=== PATIENT | male | born 1955 | race Caucasian/White ===

== ENCOUNTER 2016-11-23 14:29 | Inpatient (IN) | payer BC ==
[~2016-11-23] VITALS: Ht 185.4 cm; Wt 93.3 kg
[2016-11-23 07:55] VITALS: BP 131/69
[~2016-11-23 14:29] MED LIST: ACET500C OR; ACET65TA OR; ADV100INH INH; ADVAIR INH; APRI0.37 PO; COLA100C2 OR; GAS-80CH OR; IBUP600T OR; LACT10SO8 OR; MAALSUS OR; METHYLPREDNISOLONE; MILKSUS OR; MIRA3350 PO; MIRALEX PO; OMEP20TA PO; OMEP20TA7 OR; OXYC1TAB23 PO; PRED10TA PO; PROA1AER INH; TYLE500T78 PO; ZOMI2.5T4 PO; ZOMI5TAB OR; [UNRECOGNIZED DRUG - OTHER]; [UNRECOGNIZED DRUG - OTHER] OR
[2016-11-23] MEDS ORDERED: OMEP40CA2 PO (14:47)
[2016-11-23] MEDS ORDERED: APRI0.37 PO (14:47)
[2016-11-23] MEDS ORDERED: ONDANSETRON 4MG/2ML VIAL (J2405) As Ordered ONE (16:08)
[2016-11-23] MEDS ORDERED: ONDANSETRON 4MG/2ML VIAL (J2405) IV ONE (16:15)
--- NOTE | 2016-11-23 16:25 | REP ---
Clinical: Abdominal pain. Technique: Upright view of the chest with supine and upright views of the abdomen and pelvis. Findings: Upright view of the chest demonstrates no free air below diaphragm to suspect pneumoperitoneum. Few scattered air fluid levels are identified along with dilated loops of small bowel measuring up to 4.7 cm diameter consistent with bowel obstruction. Evidence for prior cholecystectomy and bowel surgery with surgical sutures material in the right upper abdomen. No organomegaly. Skeletal structures intact. No abnormal calcifications. Impression: Findings compatible with small bowel obstruction. Signed by Jimmie Rubio MD 11/23/2016 04:17 P
[2016-11-23] MEDS ORDERED: MORPHINE 4 MG/ML 1ML SYRINGE IV ONE ×2 (16:30→17:15)
[2016-11-23] MEDS ORDERED: SODIUM CHLORIDE 0.9% 1000 ML IV ONE (16:30)
[2016-11-23 16:35] LABS: BASO % 0.4 % (0.0-1.0); EOS # 0.1 K/mm3 (0.0-0.50); EOS % 0.8 % (0.0-3.0); LARGE UNSTAINED CELL # 0.1 K/mm3 (0.0-0.4); LARGE UNSTAINED CELL % 0.6 % (0.0-4.0); LYMPH # 1.4 K/mm3 (1.5-4.5); LYMPH % 9.7 % (24.0-44.0); MEAN CORPUSCULAR HEMOGLOBIN 30.2 pg (27.0-33.0); MEAN CORPUSCULAR HGB CONC 33.3 g/dl (32.0-36.5); MEAN CORPUSCULAR VOLUME 90.8 fl (80.0-96.0); MONO # 0.6 K/mm3 (0.0-0.8); MONO % 4.4 % (0.0-5.0); NEUTROPHILS # 11.2 K/mm3 (1.8-7.7); NEUTROPHILS % 84.2 % (36.0-66.0); PLATELET COUNT, AUTOMATED 189 k/mm3 (150-450); RED CELL DISTRIBUTION WIDTH 13.3 % (11.5-14.5); WHITE BLOOD COUNT 13.4 K/mm3 (4.0-10.0)
[2016-11-23] MEDS ORDERED: HYDR-3713 PO (16:48)
[2016-11-23] MEDS ORDERED: OMEP20CA3 PO (16:48)
[2016-11-23] MEDS ORDERED: SUCR1TAB56 PO (16:48)
[2016-11-23 16:57] LABS: ALBUMIN 3.9 GM/DL (3.2-5.2); ALBUMIN/GLOBULIN RATIO 0.91 (1.00-1.93); ALKALINE PHOSPHATASE 117 U/L (45-117); ALT/SGPT 45 U/L (12-78); ANION GAP 11 MEQ/L (8-16); AST/SGOT 27 U/L (15-37); BILIRUBIN,DIRECT 0.2 MG/DL (0.0-0.2); BILIRUBIN,TOTAL 0.8 MG/DL (0.2-1.0); BLOOD UREA NITROGEN 14 MG/DL (7-18); CALCIUM LEVEL 9.3 MG/DL (8.5-10.1); CARBON DIOXIDE LEVEL 26 MEQ/L (21-32); CHLORIDE LEVEL 102 MEQ/L (98-107); CREATININE FOR GFR 1.05 MG/DL (0.70-1.30); GLOMERULAR FILTRATION RATE > 60.0 (>56); GLUCOSE, FASTING 124 MG/DL (70-105); POTASSIUM SERUM 4.3 MEQ/L (3.5-5.1); SODIUM LEVEL 139 MEQ/L (136-145); TOTAL PROTEIN 8.2 GM/DL (6.4-8.2)
[2016-11-23] MEDS ORDERED: ISOVUE-370 76% 100ML VIAL (Q9967) As Ordered ONE (17:04)
--- NOTE | 2016-11-23 17:46 | REP ---
Clinical: Epigastric pain with suspicion for small bowel obstruction. Technique: Axial contrast enhanced images from the lung bases to the pubic symphysis using 100 ml Isovue 370 intravenous contrast material with coronal and sagittal re-formations. Findings: Distended and fluid-filled mid to distal small bowel is appreciated to the anastomosis with the ascending colon in the right mid abdomen and extension of fluid mildly filling the ascending and transverse colon to the level of the splenic flexure. Findings may reflect early small bowel obstruction as well as enterocolitis and close clinical observation is recommended. No free air. No free fluid. Liver, spleen, pancreas, bilateral adrenal glands and kidneys are normal. The patient is status post cholecystectomy. Incidental subcentimeter hepatic cyst noted in the right lobe. Pelvis demonstrates normal bladder and age appropriate osseous/seminal vesicles. Vasculature is normal. Musculoskeletal structures the straight age-related changes. Lung bases are clear. Impression: Distended fluid-filled mid to distal small bowel to the level of the anastomosis with colon in the right mid abdomen and fluid filled mildly prominent ascending and transverse colon. Differential diagnosis includes early small bowel obstruction as well as enterocolitis and close clinical observation is recommended. Signed by Jimmie Rubio MD 11/23/2016 05:37 P
[2016-11-23] MEDS ORDERED: MORPHINE 2 MG/ML 1ML SYRINGE IV PRN (18:00)
[2016-11-23] MEDS ORDERED: PERCOCET 5MG/325MG TAB PO PRN (18:00)
[2016-11-23] MEDS ORDERED: PROMETHAZINE INJ 25 MG/ML VIAL (J2550) IV PRN (18:00)
[2016-11-23] MEDS: LR 1,000 ML IV SCH (20:17)
[2016-11-23] MEDS: CIPROFLOXACIN 400 MG in APPROPRIATE DILUENT 1 EA IV SCH (20:17)
[2016-11-23] MEDS: SUCRALFATE 1 GM TAB PO SCH (20:17)
[2016-11-23] MEDS: MORPHINE 4 MG/ML 1ML SYRINGE IV PRN (20:18)
[2016-11-23] MEDS: PANTOPRAZOLE 40MG INJ (PROTONIX) (C9113) IV SCH (20:18)
[2016-11-23] MEDS: MESALAMINE 250 MG CR CAP PO SCH (20:18)
[2016-11-23] MEDS: METOCLOPRAMIDE INJ 10MG/2ML VIAL (J2765) IV PRN (20:18)
[2016-11-23] MEDS: ADVAIR DISKUS 100/50 INH PWD INH SCH (23:09)
[2016-11-24 02:00] VITALS: BP 116/61
[2016-11-24] MEDS: LR 1,000 ML IV SCH ×4 (05:33→22:03)
[2016-11-24] MEDS: ONDANSETRON 4MG/2ML VIAL (J2405) IV PRN (05:33)
[2016-11-24] MEDS: MORPHINE 4 MG/ML 1ML SYRINGE IV PRN ×3 (05:38→18:13)
[2016-11-24 06:00] VITALS: BP 131/69
[2016-11-24 06:16] LABS: MEAN CORPUSCULAR HEMOGLOBIN 30.7 pg (27.0-33.0); MEAN CORPUSCULAR HGB CONC 33.9 g/dl (32.0-36.5); MEAN CORPUSCULAR VOLUME 90.3 fl (80.0-96.0); RED CELL DISTRIBUTION WIDTH 13.2 % (11.5-14.5); WHITE BLOOD COUNT 6.5 K/mm3 (4.0-10.0)
[2016-11-24 06:28] LABS: ANION GAP 7 MEQ/L (8-16); BLOOD UREA NITROGEN 16 MG/DL (7-18); CALCIUM LEVEL 7.8 MG/DL (8.5-10.1); CARBON DIOXIDE LEVEL 29 MEQ/L (21-32); CHLORIDE LEVEL 103 MEQ/L (98-107); CREATININE FOR GFR 1.01 MG/DL (0.70-1.30); GLOMERULAR FILTRATION RATE > 60.0 (>56); GLUCOSE, FASTING 127 MG/DL (70-105); POTASSIUM SERUM 3.8 MEQ/L (3.5-5.1); SODIUM LEVEL 139 MEQ/L (136-145)
[2016-11-24] MEDS: ADVAIR DISKUS 100/50 INH PWD INH SCH ×2 (07:45→19:58)
[2016-11-24] MEDS: CIPROFLOXACIN 400 MG in APPROPRIATE DILUENT 1 EA IV SCH ×2 (09:01→20:03)
[2016-11-24] MEDS: MESALAMINE 250 MG CR CAP PO SCH ×3 (09:01→20:12)
[2016-11-24] MEDS: PANTOPRAZOLE 40MG INJ (PROTONIX) (C9113) IV SCH ×2 (09:01→20:12)
[2016-11-24] MEDS: SUCRALFATE 1 GM TAB PO SCH ×3 (09:01→20:12)
[2016-11-24] MEDS: METOCLOPRAMIDE INJ 10MG/2ML VIAL (J2765) IV PRN (09:05)
[2016-11-24] MEDS: BUDESONIDE EC 3 MG CAP (ENTOCORT EC) PO SCH (09:05)
[2016-11-24 10:00] VITALS: BP 112/63
[2016-11-24] MEDS ORDERED: CHLORASEPTIC SPRAY MT PRN (10:00)
[2016-11-24 14:00] VITALS: BP 125/69
--- NOTE | 2016-11-24 14:24 | ECGEPIP ---
Stationary ECG Study [facility] - ED Test Date: 2016-11-23 Pat Name: WENCESLAO HERNANDEZ Department: Room: - Gender: M Warehouse Shipping Clerk: ar : 1955 Requested By: Katja Morales Order Number: [id number] Reading MD: Katja Morales Measurements Intervals [place] Rate: 91 P: 60 CA: 156 QRS: -54 QRSD: 108 T: 37 QT: 340 QTc: 420 Interpretive Statements SINUS RHYTHM POSSIBLE LEFT ATRIAL ENLARGEMENT LEFT ANTERIOR FASCICULAR BLOCK POSSIBLE LEFT VENTRICULAR HYPERTROPHY NO PRIOR FOR COMPARISON Electronically Signed On 11-24-2016 14:23:55 EDT by Katja Morales
[2016-11-24 18:00] VITALS: BP 138/75
[2016-11-24] MEDS: ZOLMitriptan TABLET 2.5MG PO PRN (18:01)
[2016-11-24 22:00] VITALS: BP 124/72
[2016-11-25 02:00] VITALS: BP 126/67
[2016-11-25] MEDS: LR 1,000 ML IV SCH ×3 (05:23→21:03)
[2016-11-25] MEDS: ACETAMINOPHEN 500 MG TAB PO PRN (05:35)
[2016-11-25 06:00] VITALS: BP 111/66
[2016-11-25 06:57] LABS: MEAN CORPUSCULAR HEMOGLOBIN 30.2 pg (27.0-33.0); MEAN CORPUSCULAR HGB CONC 33.1 g/dl (32.0-36.5); MEAN CORPUSCULAR VOLUME 91.2 fl (80.0-96.0); RED CELL DISTRIBUTION WIDTH 13.2 % (11.5-14.5)
[2016-11-25 07:04] LABS: ANION GAP 6 MEQ/L (8-16); BLOOD UREA NITROGEN 13 MG/DL (7-18); CALCIUM LEVEL 8.3 MG/DL (8.5-10.1); CARBON DIOXIDE LEVEL 31 MEQ/L (21-32); CHLORIDE LEVEL 103 MEQ/L (98-107); CREATININE FOR GFR 1.01 MG/DL (0.70-1.30); GLOMERULAR FILTRATION RATE > 60.0 (>56); GLUCOSE, FASTING 95 MG/DL (70-105); POTASSIUM SERUM 3.9 MEQ/L (3.5-5.1); SODIUM LEVEL 140 MEQ/L (136-145)
[2016-11-25] MEDS: ADVAIR DISKUS 100/50 INH PWD INH SCH ×2 (07:44→19:59)
[2016-11-25] MEDS: CIPROFLOXACIN 400 MG in APPROPRIATE DILUENT 1 EA IV SCH (08:00)
--- NOTE | 2016-11-25 09:00 | REP ---
Clinical: Ileus . Technique: Upright view of the chest with supine and upright views of the abdomen and pelvis. Comparison: 11/23/2016. Findings: Frontal upright view of the chest demonstrates no acute cardiopulmonary process or free air below the diaphragm to suspect pneumoperitoneum. A nasogastric tube is identified coursing just below left hemidiaphragm. Supine and upright views of the abdomen and pelvis demonstrate nonspecific bowel gas pattern without definite obstruction or perforation. Bowel pattern appears improved compared to prior examination. No organomegaly. No abnormal calcifications. Skeletal structures normal for age. Impression: Improved bowel gas pattern with decreased dilated distended small bowel. Signed by Jimmie Rubio MD 11/25/2016 08:50 A
[2016-11-25] MEDS: MESALAMINE 250 MG CR CAP PO SCH ×3 (09:06→21:31)
[2016-11-25] MEDS: PANTOPRAZOLE 40MG INJ (PROTONIX) (C9113) IV SCH ×2 (09:06→21:31)
[2016-11-25] MEDS: BUDESONIDE EC 3 MG CAP (ENTOCORT EC) PO SCH (09:06)
[2016-11-25] MEDS: SUCRALFATE 1 GM TAB PO SCH ×3 (09:06→21:31)
[2016-11-25] MEDS: PERCOCET 5MG/325MG TAB PO PRN ×3 (09:07→22:41)
[2016-11-25 10:00] VITALS: BP 135/81
[2016-11-25] MEDS: DICYCLOMINE 10 MG CAP PO SCH ×3 (11:25→21:30)
[2016-11-25] MEDS: ONDANSETRON 4MG/2ML VIAL (J2405) IV PRN (11:25)
[2016-11-25 14:00] VITALS: BP 133/85
--- NOTE | 2016-11-25 14:00 | HPE ---
DATE OF ADMISSION: 11/23/2016 BRIEF HISTORY OF PRESENT ILLNESS: The patient is a 61-year-old male who has a history of Crohn's disease and has had multiple intra-abdominal surgeries and approximately a week and half ago underwent diagnostic laparoscopy with laparoscopic lysis of adhesions in [place]. Since that time, he has had poor gastrointestinal (GI) function and essentially had been moderately distended, having some crampy abdominal pain, but noticed that he developed progressive abdominal pain prior to admission approximately starting in 12-24 hours. He has some generalized crampy abdominal pain on the upper abdomen without fevers and without chills. He has not been on steroids for his Crohn's disease recently. He underwent a CAT scan here in the emergency room that reveals distended small bowel and fluid-filled ascending and transverse colon. All of this is consistent with an ileus versus a small bowel obstruction. Although that is not described on the CAT scan as an ileus, but that is the most likely etiology at this point. He has not had a bowel movement for 24 hours prior to admission. His white count is elevated at 13.4 without any other significant laboratory abnormalities. PAST MEDICAL HISTORY: 1. As stated previously, history of Crohn's disease. 2. History of small bowel obstruction/small bowel resection. 3. History of cholecystectomy. 4. Chronic obstructive pulmonary disease. MEDICATIONS (include): - hydrocodone - omeprazole - MiraLax - Apriso PHYSICAL EXAMINATION: Reveals a 61-year-old male who looks stated age. HEENT is unremarkable. Neck: Supple without adenopathy. Lungs: Clear to auscultation without crackles, wheezes or rhonchi. Heart is regular without murmur. Abdomen is softly distended. He has some mild tenderness throughout the upper abdomen and possible lower abdomen. Without significant guarding or rebound. He complains of colicky pain and at this point threw up a while ago, but really does not feel nauseated or having any emesis at this time. IMPRESSION AND PLAN: The patient has most likely an ileus associated with postoperative timing of this. I do feel that he needs to be nothing by mouth (n.p.o.). Another possibility of course is a Crohn's exacerbation or infectious etiology. Right now, we are not seeing an infectious etiology, but the CAT scan suggested a possible enteritis and that being another etiology for this. From my standpoint, will give him IV fluids and will see how he does overnight. Depending on how he is doing, if he has not had significant improvement of his abdominal distention, he may need an NG tube for decompression, antibiotics, IV fluids, etc. as well as, possibly even steroids may be considered in him. His stabilizing machine operator is in [place] as well as the surgeon and at this point it is reasonable to have him transferred back to that hospital should he need ongoing surgical intervention/care.
[2016-11-25] MEDS: ZOLMitriptan TABLET 2.5MG PO PRN (14:35)
[2016-11-25 18:00] VITALS: BP 131/67
[2016-11-25 22:00] VITALS: BP 121/66
[2016-11-26 02:00] VITALS: BP 123/66
[2016-11-26] MEDS: LR 1,000 ML IV SCH (05:06)
[2016-11-26 06:00] VITALS: BP 124/66
[2016-11-26 06:02] LABS: MEAN CORPUSCULAR HEMOGLOBIN 30.6 pg (27.0-33.0); MEAN CORPUSCULAR HGB CONC 33.6 g/dl (32.0-36.5); MEAN CORPUSCULAR VOLUME 91.1 fl (80.0-96.0); RED CELL DISTRIBUTION WIDTH 13.1 % (11.5-14.5); WHITE BLOOD COUNT 5.1 K/mm3 (4.0-10.0)
[2016-11-26 06:19] LABS: ANION GAP 5 MEQ/L (8-16); BLOOD UREA NITROGEN 11 MG/DL (7-18); CALCIUM LEVEL 8.2 MG/DL (8.5-10.1); CARBON DIOXIDE LEVEL 32 MEQ/L (21-32); CHLORIDE LEVEL 103 MEQ/L (98-107); CREATININE FOR GFR 1.01 MG/DL (0.70-1.30); GLOMERULAR FILTRATION RATE > 60.0 (>56); GLUCOSE, FASTING 83 MG/DL (70-105); POTASSIUM SERUM 3.7 MEQ/L (3.5-5.1); SODIUM LEVEL 140 MEQ/L (136-145)
[2016-11-26] MEDS: ADVAIR DISKUS 100/50 INH PWD INH SCH ×2 (07:56→19:57)
[2016-11-26] MEDS: SUCRALFATE 1 GM TAB PO SCH ×3 (08:55→20:26)
[2016-11-26] MEDS: DICYCLOMINE 10 MG CAP PO SCH ×3 (08:55→20:26)
[2016-11-26] MEDS: MESALAMINE 250 MG CR CAP PO SCH ×3 (08:55→20:26)
[2016-11-26] MEDS: BUDESONIDE EC 3 MG CAP (ENTOCORT EC) PO SCH (08:55)
[2016-11-26] MEDS: PANTOPRAZOLE 40MG INJ (PROTONIX) (C9113) IV SCH ×2 (08:55→20:26)
[2016-11-26] MEDS: ONDANSETRON 4MG/2ML VIAL (J2405) IV PRN (09:14)
[2016-11-26 10:00] VITALS: BP 129/68
[2016-11-26] MEDS: MORPHINE 4 MG/ML 1ML SYRINGE IV PRN (10:10)
[2016-11-26 14:00] VITALS: BP 136/71
[2016-11-26 17:28] VITALS: BP 145/93
[2016-11-26] MEDS: PERCOCET 5MG/325MG TAB PO PRN (20:27)
[2016-11-26 22:00] VITALS: BP 120/77
[2016-11-27 02:00] VITALS: BP 119/69
[2016-11-27] MEDS: ACETAMINOPHEN 500 MG TAB PO PRN (05:28)
[2016-11-27 05:59] LABS: MEAN CORPUSCULAR HEMOGLOBIN 29.6 pg (27.0-33.0); MEAN CORPUSCULAR HGB CONC 32.6 g/dl (32.0-36.5); MEAN CORPUSCULAR VOLUME 90.8 fl (80.0-96.0)
[2016-11-27 06:00] VITALS: BP 132/80
[2016-11-27 06:10] LABS: ANION GAP 8 MEQ/L (8-16); BLOOD UREA NITROGEN 10 MG/DL (7-18); CALCIUM LEVEL 8.2 MG/DL (8.5-10.1); CARBON DIOXIDE LEVEL 30 MEQ/L (21-32); CHLORIDE LEVEL 103 MEQ/L (98-107); CREATININE FOR GFR 0.99 MG/DL (0.70-1.30); GLOMERULAR FILTRATION RATE > 60.0 (>56); GLUCOSE, FASTING 92 MG/DL (70-105); POTASSIUM SERUM 3.3 MEQ/L (3.5-5.1); SODIUM LEVEL 141 MEQ/L (136-145)
[2016-11-27] MEDS: ADVAIR DISKUS 100/50 INH PWD INH SCH (08:04)
[2016-11-27] MEDS: DICYCLOMINE 10 MG CAP PO SCH (08:56)
[2016-11-27] MEDS: BUDESONIDE EC 3 MG CAP (ENTOCORT EC) PO SCH (08:57)
[2016-11-27] MEDS: SUCRALFATE 1 GM TAB PO SCH (08:57)
[2016-11-27] MEDS: MESALAMINE 250 MG CR CAP PO SCH (08:57)
[2016-11-27] MEDS ORDERED: PANTOPRAZOLE 40MG TAB (PROTONIX) PO SCH (09:00)
[2016-11-27 09:56] VITALS: BP 129/80
[2016-11-27] MEDS ORDERED: POTASSIUM CHLORIDE 10 MEQ SR TABLET PO ONE (10:00)
--- NOTE | 2016-12-12 22:00 | DSES ---
DATE OF ADMISSION: 11/23/2016 DATE OF DISCHARGE: 11/27/2016 PRINCIPAL DIAGNOSIS: Possible Crohn's exacerbation/postoperative ileus secondary to a diagnostic laparoscopy with lysis of adhesions in [place]. ASSOCIATED DIAGNOSES: 1. History of Crohn's disease. 2. History of small bowel obstruction. 3. History of small bowel resection. 4. History of cholecystectomy. 5. History of chronic obstructive pulmonary disease (COPD). HISTORY OF PRESENT ILLNESS: The patient is a 61-year-old male who has Crohn's disease and has had multiple intra-abdominal surgeries, and a week and half ago underwent a diagnostic laparoscopy with lysis of adhesions in [place]. Since that time, he has had poor gastrointestinal (GI) function and has had some moderate distension and crampy abdominal pain, but over the last 24-48 hours prior to admission developed severe pain, discomfort. The patient had a CT scan which revealed possible ileus with air-fluid levels. HOSPITAL COURSE SUMMARY: The patient was admitted with the above diagnosis, was kept nothing by mouth overnight but did not have any significant improvement of his abdominal distension and pain and thus, a nasogastric (NG) tube was placed. After 24 hours he has significant improvement and overall started bowel function the second hospital day, but still with the abdominal distension issue. His NG tube was left in place for 48 hours. He started having copious amounts of bowel movements and his NG tube was discontinued. He was started on a clear liquid diet. Eventually discharged home on 11/27. DISCHARGE MEDICATIONS: Include Tylenol, Vicodin, omeprazole, MiraLax, Advair, Carafate and Zomig. He is to follow up with his surgeon in [place] and the next week or two, and followup with his computer security specialist in the next month as well.
== END 2016-11-27 12:39 | disposition home or self-care (01) | DRG 247 ==
LOC: M ED 15:39 → OBSVTOIN 17:57 → M ED INP 17:57 → M MSPAV 19:52
PROVIDERS: ADMIT Surgery; ATTEND Surgery
DX: K56.7 Ileus, unspecified (principal); K50.90 Crohn's disease, unspecified, without complications; J44.9 Chronic obstructive pulmonary disease, unspecified; Z79.899 Other long term (current) drug therapy

== ENCOUNTER 2022-01-26 16:46 | Emergency (ER) | payer BC, MEDICARE ==
[~2022-01-26] VITALS: Ht 185.4 cm; Wt 108.2 kg
[~2022-01-26 16:46] MED LIST changes: +HYDR-3713 PO; +OMEP-358 PO; +OMEP1CAP73 PO; -OMEP20TA PO; +OMEP40CA4 PO; +PRED-351 PO; -PRED10TA PO; -PROA1AER INH; +PROAAER10 INH; +SUCR1TAB56 PO
[2022-01-26] MEDS ORDERED: PRED10TA2 (17:07)
[2022-01-26] MEDS ORDERED: OXYC1TAB23 PO (17:07)
[2022-01-26] MEDS ORDERED: HUMI40IN2 (17:07)
[2022-01-26] MEDS ORDERED: MORPHINE 4 MG/ML 1ML VIAL/SYRINGE IV ONE ×2 (19:15→20:35)
[2022-01-26 19:20] LABS: BASO % 0.5 % (0.0-1.0); EOS # 0.3 10^3/uL (0.0-0.5); EOS % 3.7 % (0.0-3.0); HEMATOCRIT 37.7 % (42.0-52.0); HEMOGLOBIN 12.3 g/dl (13.5-17.5); LYMPH # 1.3 10^3/uL (1.5-5.0); LYMPH % 17.7 % (24.0-44.0); MEAN CORPUSCULAR HGB CONC 32.6 g/dl (32.0-36.5); MONO # 0.9 10^3/uL (0.0-0.8); NEUTROPHILS % 65.6 % (36.0-66.0); PLATELET COUNT, AUTOMATED 312 10^3/uL (150-450); RED BLOOD COUNT 3.97 10^6/uL (4.30-6.10); WHITE BLOOD COUNT 7.6 10^3/uL (4.0-10.0)
[2022-01-26] MEDS ORDERED: KETOROLAC 30 MG/ML 1ML VIAL IV ONE (19:35)
[2022-01-26 19:45] LABS: ALBUMIN 2.5 GM/DL (3.2-5.2); ALT/SGPT 45 U/L (12-78); BILIRUBIN,DIRECT 0.2 MG/DL (0.0-0.2); BILIRUBIN,TOTAL 0.6 MG/DL (0.2-1.0); BLOOD UREA NITROGEN 8 MG/DL (7-18); CALCIUM LEVEL 8.5 MG/DL (8.8-10.2); CARBON DIOXIDE LEVEL 28 MEQ/L (21-32); CHLORIDE LEVEL 105 MEQ/L (98-107); CREATININE FOR GFR 0.98 MG/DL (0.70-1.30); GLOMERULAR FILTRATION RATE > 60.0 (>49); GLUCOSE, FASTING 107 MG/DL (70-100); LIPASE 94 U/L (73-393); POTASSIUM SERUM 3.9 MEQ/L (3.5-5.1); SODIUM LEVEL 139 MEQ/L (136-145); TOTAL PROTEIN 6.5 GM/DL (6.4-8.2)
[2022-01-26] MEDS ORDERED: ISOVUE-370 76% 100ML VIAL As Ordered ONE (20:17)
[2022-01-26] MEDS ORDERED: PERCOCET 5MG/325MG TAB PO ONE (21:50)
[2022-01-26] MEDS ORDERED: PIPERACILLIN/TAZOBACTAM SOD 3.375 GM in D5W MINI-BAG PLUS 50 ML IV ONE (22:15)
[2022-01-26 23:16] LABS: RSV AMPLIFICATION NEGATIVE (NEGATIVE)
[2022-01-27 00:04] VITALS: BP 121/67
== END 2022-01-27 00:04 | disposition short-term general hospital (02) ==
LOC: M ED 16:46
DX: T81.43XA Infection following a procedure, organ and space surgical site, initial encounter (principal); K65.1 Peritoneal abscess; K50.90 Crohn's disease, unspecified, without complications; R91.8 Other nonspecific abnormal finding of lung field; Z90.49 Acquired absence of other specified parts of digestive tract; Z88.8 Allergy status to other drugs, medicaments and biological substances; Z79.899 Other long term (current) drug therapy
CPT/HCPCS: 71046; 74177; 80047; 80048; 80076; 83605; 83690; 85025; 87040; 87631; 96374; 96375; 96376; 99283; J1885; J2270; J2543; Q9967

== ENCOUNTER 2023-08-28 14:08 | Inpatient (IN) | payer BC, MEDICARE ==
[~2023-08-28] VITALS: Ht 177.8 cm; Wt 105.3 kg
[~2023-08-28 14:08] MED LIST changes: +HUMI40IN2 SQ; +PRED10TA2
[2023-08-28] MEDS: ONDANSETRON 4MG 2ML VIAL IV ONE (14:38)
[2023-08-28] MEDS: HYDROMORPHONE HCL 0.5 MG/ 0.5 ML SYRINGE IV PRN (14:39)
[2023-08-28] MEDS: NS 1,000 ML IV ONE (14:39)
[2023-08-28] MEDS ORDERED: ISOVUE-370 76% 100ML VIAL As Ordered ONE (14:44)
[2023-08-28 14:51] LABS: BASO % 0.3 % (0.0-1.0); EOS # 0.2 10^3/uL (0.0-0.5); EOS % 1.7 % (0.0-3.0); HEMATOCRIT 44.7 % (42.0-52.0); HEMOGLOBIN 15.3 g/dl (13.5-17.5); LYMPH # 1.8 10^3/uL (1.5-5.0); LYMPH % 20.3 % (24.0-44.0); MEAN CORPUSCULAR HEMOGLOBIN 32.1 pg (27.0-33.0); MEAN CORPUSCULAR HGB CONC 34.2 g/dl (32.0-36.5); MEAN CORPUSCULAR VOLUME 93.9 fl (80.0-96.0); MONO # 0.6 10^3/uL (0.0-0.8); MONO % 6.7 % (2.0-8.0); NEUTROPHILS # 6.1 10^3/uL (1.5-8.5); NEUTROPHILS % 70.8 % (36.0-66.0); PLATELET COUNT, AUTOMATED 179 10^3/uL (150-450); RED BLOOD COUNT 4.76 10^6/uL (4.30-6.10); WHITE BLOOD COUNT 8.6 10^3/uL (4.0-10.0)
[2023-08-28 15:06] LABS: INR 1.02; PARTIAL THROMBOPLASTIN TIME 28.9 SECONDS (24.8-34.2); PROTHROMBIN TIME 13.1 SECONDS (12.5-14.5)
[2023-08-28 15:13] LABS: CK-MB VALUE MASS < 1.0 NG/ML (<3.6); LIPASE 33 U/L (12-53)
[2023-08-28 15:14] LABS: CPK CREATINE PHOSPHOKINASE 81 U/L (46-171); MB/CK RELATIVE INDEX 1.23 (< OR =4)
[2023-08-28 15:15] LABS: ALBUMIN 3.6 G/DL (3.2-5.2); ALKALINE PHOSPHATASE 82 U/L (46-116); ALT/SGPT 26 U/L (7.0-40); AST/SGOT 21 U/L (<34); BILIRUBIN,DIRECT 0.3 MG/DL (<0.4); BILIRUBIN,TOTAL 0.7 MG/DL (0.3-1.2); BLOOD UREA NITROGEN 15 MG/DL (9-23); CALCIUM LEVEL 8.7 MG/DL (8.3-10.6); CARBON DIOXIDE LEVEL 27 MMOL/L (20-31); CHLORIDE LEVEL 109 MMOL/L (98-107); CREATININE FOR GFR 1.07 MG/DL (0.70-1.30); GLOMERULAR FILTRATION RATE > 60.0 (>49); GLUCOSE, FASTING 98 MG/DL (74-106); POTASSIUM SERUM 3.7 MMOL/L (3.5-5.1); SODIUM LEVEL 141 MMOL/L (136-145)
[2023-08-28 15:17] LABS: RSV AMPLIFICATION NEGATIVE (NEGATIVE)
[2023-08-28 16:36] LABS: CK-MB VALUE MASS < 1.0 NG/ML (<3.6)
[2023-08-28 16:55] LABS: CPK CREATINE PHOSPHOKINASE 76 U/L (46-171); MB/CK RELATIVE INDEX 1.31 (< OR =4)
[2023-08-28] MEDS: MORPHINE 2 MG/ML 1ML VIAL IV PRN (17:03)
[2023-08-28] MEDS ORDERED: IBUP200C25 PO (17:33)
[2023-08-28] MEDS ORDERED: DICY20TA20 PO (17:33)
[2023-08-28] MEDS ORDERED: HOME MED LIST COMPLETE! XX SCH (17:45)
[2023-08-28] MEDS ORDERED: ONDANSETRON 4MG 2ML VIAL IV PRN (17:50)
[2023-08-28] MEDS: KETOROLAC 30 MG/ML 1ML VIAL IV SCH (19:44)
[2023-08-28] MEDS: CIPROFLOXACIN 400 MG in IV 1 EA IV SCH (19:44)
[2023-08-28] MEDS: PANTOPRAZOLE 40MG VIAL IV SCH (19:44)
[2023-08-28] MEDS: methylPREDNISolone 40MG 1ML VIAL IV SCH (19:44)
[2023-08-28 20:58] VITALS: BP 149/85; TEMP 97.5; O2SAT 93
[2023-08-28] MEDS: LR 1,000 ML IV SCH (21:17)
[2023-08-28] MEDS: metroNIDAZOLE 500 MG in IV 1 EA IV SCH (21:17)
[2023-08-29 05:16] VITALS: BP 126/79; TEMP 97.2; O2SAT 94
[2023-08-29 05:46] LABS: HEMATOCRIT 41.3 % (42.0-52.0); HEMOGLOBIN 14.1 g/dl (13.5-17.5); LYMPH # 0.5 10^3/uL (1.5-5.0); LYMPH % 9.9 % (24.0-44.0); MEAN CORPUSCULAR HEMOGLOBIN 31.9 pg (27.0-33.0); MEAN CORPUSCULAR HGB CONC 34.1 g/dl (32.0-36.5); MEAN CORPUSCULAR VOLUME 93.4 fl (80.0-96.0); MONO # 0.1 10^3/uL (0.0-0.8); MONO % 2.2 % (2.0-8.0); NEUTROPHILS # 4.8 10^3/uL (1.5-8.5); NEUTROPHILS % 87.7 % (36.0-66.0); PLATELET COUNT, AUTOMATED 162 10^3/uL (150-450); RED BLOOD COUNT 4.42 10^6/uL (4.30-6.10); WHITE BLOOD COUNT 5.5 10^3/uL (4.0-10.0)
[2023-08-29] MEDS: MORPHINE 4 MG/ML 1ML VIAL IV PRN (13:22)
[2023-08-29] MEDS: CHLORASEPTIC SPRAY MT PRN (20:31)
[2023-08-29 20:51] VITALS: BP 146/76; TEMP 97.7; O2SAT 96
[2023-08-30 05:49] LABS: BASO % 0.2 % (0.0-1.0); HEMATOCRIT 41.4 % (42.0-52.0); HEMOGLOBIN 13.8 g/dl (13.5-17.5); LYMPH # 0.6 10^3/uL (1.5-5.0); LYMPH % 10.9 % (24.0-44.0); MEAN CORPUSCULAR HEMOGLOBIN 31.4 pg (27.0-33.0); MEAN CORPUSCULAR HGB CONC 33.3 g/dl (32.0-36.5); MEAN CORPUSCULAR VOLUME 94.3 fl (80.0-96.0); MONO # 0.3 10^3/uL (0.0-0.8); MONO % 5.2 % (2.0-8.0); NEUTROPHILS # 4.5 10^3/uL (1.5-8.5); NEUTROPHILS % 83.5 % (36.0-66.0); PLATELET COUNT, AUTOMATED 148 10^3/uL (150-450); RED BLOOD COUNT 4.39 10^6/uL (4.30-6.10); WHITE BLOOD COUNT 5.4 10^3/uL (4.0-10.0)
[2023-08-30 06:16] LABS: BLOOD UREA NITROGEN 19 MG/DL (9-23); CALCIUM LEVEL 7.8 MG/DL (8.3-10.6); CARBON DIOXIDE LEVEL 26 MMOL/L (20-31); CHLORIDE LEVEL 110 MMOL/L (98-107); CREATININE FOR GFR 0.83 MG/DL (0.70-1.30); GLOMERULAR FILTRATION RATE > 60.0 (>49); GLUCOSE, FASTING 132 MG/DL (74-106); POTASSIUM SERUM 4.5 MMOL/L (3.5-5.1); SODIUM LEVEL 139 MMOL/L (136-145)
[2023-08-30 14:00] VITALS: BP 154/81; TEMP 97.5; O2SAT 94
[2023-08-30] MEDS: KETOROLAC 30 MG/ML 1ML VIAL IV PRN (17:18)
[2023-08-30 20:30] VITALS: BP 151/82; TEMP 97.5; O2SAT 97
[2023-08-31 05:35] VITALS: BP 143/82; TEMP 97.5; O2SAT 97
[2023-08-31 05:52] LABS: HEMATOCRIT 38.6 % (42.0-52.0); HEMOGLOBIN 12.8 g/dl (13.5-17.5); LYMPH # 0.7 10^3/uL (1.5-5.0); LYMPH % 11.5 % (24.0-44.0); MEAN CORPUSCULAR HEMOGLOBIN 30.9 pg (27.0-33.0); MEAN CORPUSCULAR HGB CONC 33.2 g/dl (32.0-36.5); MEAN CORPUSCULAR VOLUME 93.2 fl (80.0-96.0); MONO # 0.4 10^3/uL (0.0-0.8); MONO % 6.8 % (2.0-8.0); NEUTROPHILS # 5.1 10^3/uL (1.5-8.5); NEUTROPHILS % 81.4 % (36.0-66.0); PLATELET COUNT, AUTOMATED 149 10^3/uL (150-450); RED BLOOD COUNT 4.14 10^6/uL (4.30-6.10); WHITE BLOOD COUNT 6.3 10^3/uL (4.0-10.0)
[2023-08-31 06:23] LABS: BLOOD UREA NITROGEN 16 MG/DL (9-23); CALCIUM LEVEL 7.7 MG/DL (8.3-10.6); CARBON DIOXIDE LEVEL 27 MMOL/L (20-31); CHLORIDE LEVEL 110 MMOL/L (98-107); CREATININE FOR GFR 0.85 MG/DL (0.70-1.30); GLOMERULAR FILTRATION RATE > 60.0 (>49); GLUCOSE, FASTING 127 MG/DL (74-106); POTASSIUM SERUM 3.8 MMOL/L (3.5-5.1); SODIUM LEVEL 140 MMOL/L (136-145)
[2023-08-31] MEDS: ENOXAPARIN 40MG/0.4ML SYRINGE (J1650 PER 10MG) SC SCH (08:17)
[2023-08-31] MEDS: metroNIDAZOLE (FLAGYL) 500MG TABLET PO SCH (13:29)
[2023-08-31 14:00] VITALS: BP 158/82; TEMP 97.5; O2SAT 97
[2023-08-31] MEDS: CIPROFLOXACIN 500MG TABLET PO SCH (17:46)
[2023-08-31] MEDS: predniSONE 20 MG TAB PO SCH (20:50)
[2023-09-01 05:53] LABS: BASO % 0.2 % (0.0-1.0); HEMATOCRIT 39.6 % (42.0-52.0); HEMOGLOBIN 13.4 g/dl (13.5-17.5); LYMPH # 0.7 10^3/uL (1.5-5.0); LYMPH % 12.8 % (24.0-44.0); MEAN CORPUSCULAR HEMOGLOBIN 31.5 pg (27.0-33.0); MEAN CORPUSCULAR HGB CONC 33.8 g/dl (32.0-36.5); MONO # 0.5 10^3/uL (0.0-0.8); MONO % 9.8 % (2.0-8.0); NEUTROPHILS # 4.1 10^3/uL (1.5-8.5); NEUTROPHILS % 76.8 % (36.0-66.0); PLATELET COUNT, AUTOMATED 140 10^3/uL (150-450); RED BLOOD COUNT 4.26 10^6/uL (4.30-6.10); WHITE BLOOD COUNT 5.4 10^3/uL (4.0-10.0)
[2023-09-01 05:58] VITALS: BP 139/80; TEMP 97.5; O2SAT 97
[2023-09-01 06:11] LABS: BLOOD UREA NITROGEN 17 MG/DL (9-23); CALCIUM LEVEL 7.9 MG/DL (8.3-10.6); CARBON DIOXIDE LEVEL 26 MMOL/L (20-31); CHLORIDE LEVEL 110 MMOL/L (98-107); CREATININE FOR GFR 0.89 MG/DL (0.70-1.30); GLOMERULAR FILTRATION RATE > 60.0 (>49); GLUCOSE, FASTING 125 MG/DL (74-106); POTASSIUM SERUM 3.8 MMOL/L (3.5-5.1); SODIUM LEVEL 141 MMOL/L (136-145)
[2023-09-01 14:00] VITALS: BP 152/81; TEMP 97.5; O2SAT 98
[2023-09-01 20:00] VITALS: BP 148/66; TEMP 97.5; O2SAT 97
[2023-09-02 06:00] VITALS: BP 160/88; TEMP 97.5; O2SAT 95
[2023-09-02 06:14] LABS: LYMPH # 0.8 10^3/uL (1.5-5.0); LYMPH % 13.6 % (24.0-44.0); MEAN CORPUSCULAR HEMOGLOBIN 31.7 pg (27.0-33.0); MEAN CORPUSCULAR HGB CONC 34.1 g/dl (32.0-36.5); MEAN CORPUSCULAR VOLUME 92.8 fl (80.0-96.0); MONO # 0.6 10^3/uL (0.0-0.8); MONO % 9.9 % (2.0-8.0); NEUTROPHILS # 4.7 10^3/uL (1.5-8.5); NEUTROPHILS % 75.9 % (36.0-66.0); PLATELET COUNT, AUTOMATED 153 10^3/uL (150-450); RED BLOOD COUNT 4.42 10^6/uL (4.30-6.10); WHITE BLOOD COUNT 6.2 10^3/uL (4.0-10.0)
[2023-09-02 06:47] LABS: BLOOD UREA NITROGEN 15 MG/DL (9-23); CALCIUM LEVEL 7.9 MG/DL (8.3-10.6); CARBON DIOXIDE LEVEL 27 MMOL/L (20-31); CHLORIDE LEVEL 107 MMOL/L (98-107); CREATININE FOR GFR 0.87 MG/DL (0.70-1.30); GLOMERULAR FILTRATION RATE > 60.0 (>49); GLUCOSE, FASTING 126 MG/DL (74-106); POTASSIUM SERUM 3.8 MMOL/L (3.5-5.1); SODIUM LEVEL 138 MMOL/L (136-145)
[2023-09-02] MEDS: GASTROGRAFIN SOLUTION 30ML PO SCH (11:40)
[2023-09-02 14:00] VITALS: BP 152/85; TEMP 97.5; O2SAT 97
[2023-09-02] MEDS ORDERED: KETOROLAC TROMETHAMINE 10 MG TAB PO PRN (18:35)
[2023-09-02 20:18] VITALS: BP 139/81; TEMP 97.5; O2SAT 97
[2023-09-03 05:32] VITALS: BP 131/77; TEMP 97.7; O2SAT 95
[2023-09-03 06:29] LABS: BASO % 0.2 % (0.0-1.0); EOS % 0.2 % (0.0-3.0); HEMATOCRIT 41.8 % (42.0-52.0); HEMOGLOBIN 14.4 g/dl (13.5-17.5); LYMPH # 0.9 10^3/uL (1.5-5.0); LYMPH % 14.8 % (24.0-44.0); MEAN CORPUSCULAR HEMOGLOBIN 31.6 pg (27.0-33.0); MEAN CORPUSCULAR HGB CONC 34.4 g/dl (32.0-36.5); MEAN CORPUSCULAR VOLUME 91.7 fl (80.0-96.0); MONO # 0.5 10^3/uL (0.0-0.8); MONO % 7.4 % (2.0-8.0); NEUTROPHILS # 4.8 10^3/uL (1.5-8.5); NEUTROPHILS % 76.6 % (36.0-66.0); PLATELET COUNT, AUTOMATED 163 10^3/uL (150-450); RED BLOOD COUNT 4.56 10^6/uL (4.30-6.10); WHITE BLOOD COUNT 6.2 10^3/uL (4.0-10.0)
[2023-09-03 06:56] LABS: BLOOD UREA NITROGEN 15 MG/DL (9-23); CALCIUM LEVEL 7.7 MG/DL (8.3-10.6); CARBON DIOXIDE LEVEL 27 MMOL/L (20-31); CHLORIDE LEVEL 108 MMOL/L (98-107); CREATININE FOR GFR 0.91 MG/DL (0.70-1.30); GLOMERULAR FILTRATION RATE > 60.0 (>49); GLUCOSE, FASTING 126 MG/DL (74-106); POTASSIUM SERUM 3.9 MMOL/L (3.5-5.1); SODIUM LEVEL 140 MMOL/L (136-145)
[2023-09-03] MEDS ORDERED: METR-265 PO (10:10)
[2023-09-03] MEDS ORDERED: CIPR500T39 PO (10:10)
[2023-09-03] MEDS ORDERED: KETO10TAB PO (10:10)
[2023-09-03] MEDS ORDERED: PRED20TA PO (11:01)
[2023-09-03] MEDS ORDERED: PRED10TA2 PO (11:01)
[2023-09-03] MEDS ORDERED: PANT40TA29 PO (11:02)
== END 2023-09-03 13:15 | disposition home or self-care (01) | DRG 386 ==
LOC: M ED 14:08 → M ED INP 17:33 → ENRESERV 19:36 → M MSPAV 20:57
PROVIDERS: ADMIT Internal Medicine Nephrology; ATTEND Internal Medicine Nephrology
DX: K50.90 Crohn's disease, unspecified, without complications (principal); K56.600 Partial intestinal obstruction, unspecified as to cause; J44.9 Chronic obstructive pulmonary disease, unspecified; K21.9 Gastro-esophageal reflux disease without esophagitis; J45.909 Unspecified asthma, uncomplicated; G47.33 Obstructive sleep apnea (adult) (pediatric); K57.90 Diverticulosis of intestine, part unspecified, without perforation or abscess without bleeding; G89.29 Other chronic pain; M54.32 Sciatica, left side; G43.909 Migraine, unspecified, not intractable, without status migrainosus; F41.9 Anxiety disorder, unspecified; F32.A Depression, unspecified; M54.59 Other low back pain; I71.20 Thoracic aortic aneurysm, without rupture, unspecified; Z88.8 Allergy status to other drugs, medicaments and biological substances; Z79.899 Other long term (current) drug therapy

== ENCOUNTER 2023-11-10 11:33 | Emergency (ER) | payer MEDICARE ==
[~2023-11-10] VITALS: Ht 182.9 cm; Wt 104.1 kg
[~2023-11-10 11:33] MED LIST changes: +CIPR500T39 PO; +DICY20TA20 PO; +IBUP200C25 PO; +KETO10TAB PO; +METR-265 PO; +PANT40TA29 PO; +PRED10TA2 PO; +PRED20TA PO
[2023-11-10 13:19] LABS: BASO % 0.5 % (0.0-1.0); EOS # 0.1 10^3/uL (0.0-0.5); EOS % 0.9 % (0.0-3.0); HEMOGLOBIN 15.2 g/dl (13.5-17.5); LYMPH # 0.9 10^3/uL (1.5-5.0); LYMPH % 13.7 % (24.0-44.0); MEAN CORPUSCULAR HEMOGLOBIN 32.4 pg (27.0-33.0); MEAN CORPUSCULAR HGB CONC 33.8 g/dl (32.0-36.5); MEAN CORPUSCULAR VOLUME 95.9 fl (80.0-96.0); MONO % 14.9 % (2.0-8.0); NEUTROPHILS # 4.5 10^3/uL (1.5-8.5); NEUTROPHILS % 68.9 % (36.0-66.0); PLATELET COUNT, AUTOMATED 138 10^3/uL (150-450); RED BLOOD COUNT 4.69 10^6/uL (4.30-6.10); WHITE BLOOD COUNT 6.6 10^3/uL (4.0-10.0)
[2023-11-10 13:24] LABS: VENOUS BASE EXCESS 2.9 (-2.0-2.0); VENOUS HCO3 29.4 MMOL/L (23.0-27.0); VENOUS O2 SATURATION 49.6 % (60.0-80.0); VENOUS PARTIAL PRESSURE CO2 51.5 mmHg (38.0-50.0); VENOUS PARTIAL PRESSURE O2 26.7 mmHg (30.0-50.0); VENOUS PH 7.374 UNITS (7.330-7.430); VENOUS STANDARD HCO3 25.7 MMOL/L
[2023-11-10 13:42] LABS: ALBUMIN 2.9 G/DL (3.2-5.2); ALKALINE PHOSPHATASE 61 U/L (46-116); ALT/SGPT 46 U/L (7.0-40); AST/SGOT 23 U/L (<34); BILIRUBIN,DIRECT 0.4 MG/DL (<0.4); BLOOD UREA NITROGEN 16 MG/DL (9-23); CALCIUM LEVEL 8.5 MG/DL (8.3-10.6); CARBON DIOXIDE LEVEL 29 MMOL/L (20-31); CHLORIDE LEVEL 103 MMOL/L (98-107); GLOMERULAR FILTRATION RATE > 60.0 (>49); GLUCOSE, FASTING 105 MG/DL (74-106); POTASSIUM SERUM 4.1 MMOL/L (3.5-5.1); SODIUM LEVEL 136 MMOL/L (136-145); TOTAL PROTEIN 5.9 G/DL (5.7-8.2)
[2023-11-10 13:46] LABS: THYROID STIMULATING HORMONE 0.706 uIU/ML (0.55-4.78); THYROXINE (T4) 7.3 UG/DL (4.5-10.9)
[2023-11-10] MEDS ORDERED: ISOVUE-370 76% 100ML VIAL As Ordered ONE (14:10)
[2023-11-10 14:15] VITALS: BP 122/72
[2023-11-10 15:33] VITALS: O2SAT 94
[2023-11-10 16:11] VITALS: TEMP 100.3
== END 2023-11-10 16:13 | disposition home or self-care (01) ==
LOC: EDBD 11:33 → M ED 11:33
DX: R06.00 Dyspnea, unspecified (principal); J45.909 Unspecified asthma, uncomplicated; K50.90 Crohn's disease, unspecified, without complications; Z79.52 Long term (current) use of systemic steroids; Z79.1 Long term (current) use of non-steroidal anti-inflammatories (NSAID); Z79.620 Long term (current) use of immunosuppressive biologic; Z88.8 Allergy status to other drugs, medicaments and biological substances; Z88.5 Allergy status to narcotic agent; Z88.6 Allergy status to analgesic agent
CPT/HCPCS: 36415; 71045; 71275; 80048; 80076; 82803; 83605; 83880; 84436; 84443; 84484; 85025; 87040; 87486; 87581; 87633; 87798; 93005; 93041; 94760; 99285; Q9967

== ENCOUNTER 2023-11-12 19:40 | Emergency (ER) | payer MEDICARE ==
[~2023-11-12] VITALS: Ht 185.4 cm; Wt 104.1 kg
[2023-11-12] MEDS: PIPERACILLIN/TAZOBACTAM SOD 4.5 GM in D5W MINI-BAG PLUS 50 ML IV ONE (21:04)
[2023-11-12] MEDS: NS 3,120 ML in IV 1 EA IV ONE (21:04)
[2023-11-12] MEDS: ACETAMINOPHEN 325 MG TAB PO ONE (21:05)
[2023-11-12 21:11] LABS: BASO % 0.7 % (0.0-1.0); EOS # 0.1 10^3/uL (0.0-0.5); HEMATOCRIT 41.5 % (42.0-52.0); HEMOGLOBIN 14.2 g/dl (13.5-17.5); LYMPH # 1.1 10^3/uL (1.5-5.0); LYMPH % 18.5 % (24.0-44.0); MEAN CORPUSCULAR HEMOGLOBIN 32.1 pg (27.0-33.0); MEAN CORPUSCULAR HGB CONC 34.2 g/dl (32.0-36.5); MEAN CORPUSCULAR VOLUME 93.9 fl (80.0-96.0); MONO # 0.9 10^3/uL (0.0-0.8); MONO % 13.9 % (2.0-8.0); NEUTROPHILS % 65.4 % (36.0-66.0); PLATELET COUNT, AUTOMATED 143 10^3/uL (150-450); RED BLOOD COUNT 4.42 10^6/uL (4.30-6.10); WHITE BLOOD COUNT 6.1 10^3/uL (4.0-10.0)
[2023-11-12 21:18] LABS: LIPASE 30 U/L (12-53)
[2023-11-12 21:19] LABS: CK-MB VALUE MASS < 1.0 NG/ML (<3.6)
[2023-11-12 21:20] LABS: ALBUMIN 2.6 G/DL (3.2-5.2); ALKALINE PHOSPHATASE 53 U/L (46-116); ALT/SGPT 32 U/L (7.0-40); AST/SGOT 22 U/L (<34); BILIRUBIN,DIRECT 0.3 MG/DL (<0.4); BILIRUBIN,TOTAL 0.8 MG/DL (0.3-1.2); BLOOD UREA NITROGEN 15 MG/DL (9-23); CALCIUM LEVEL 7.9 MG/DL (8.3-10.6); CARBON DIOXIDE LEVEL 23 MMOL/L (20-31); CHLORIDE LEVEL 106 MMOL/L (98-107); CREATININE FOR GFR 0.96 MG/DL (0.70-1.30); GLOMERULAR FILTRATION RATE > 60.0 (>49); GLUCOSE, FASTING 127 MG/DL (74-106); SODIUM LEVEL 138 MMOL/L (136-145); TOTAL PROTEIN 5.7 G/DL (5.7-8.2)
[2023-11-12] MEDS: GASTROGRAFIN SOLUTION 30ML PO SCH (21:20)
[2023-11-12 21:22] LABS: CPK CREATINE PHOSPHOKINASE 40 U/L (46-171)
[2023-11-12] MEDS ORDERED: ISOVUE-370 76% 100ML VIAL As Ordered ONE (21:23)
[2023-11-13] MEDS: methylPREDNISolone 125MG 2ML VIAL IV ONE (02:21)
[2023-11-13] MEDS ORDERED: ONDANSETRON 4MG 2ML VIAL IV ONE (02:45)
[2023-11-13 05:52] VITALS: TEMP 97.4; O2SAT 94
[2023-11-13 06:00] VITALS: BP 137/78
== END 2023-11-13 06:31 | disposition left against medical advice (07) ==
LOC: M ED 19:40
DX: K56.600 Partial intestinal obstruction, unspecified as to cause (principal); K50.90 Crohn's disease, unspecified, without complications; J98.11 Atelectasis; R00.1 Bradycardia, unspecified; I44.4 Left anterior fascicular block; G43.909 Migraine, unspecified, not intractable, without status migrainosus; K21.9 Gastro-esophageal reflux disease without esophagitis; J45.909 Unspecified asthma, uncomplicated; Z88.8 Allergy status to other drugs, medicaments and biological substances; Z88.1 Allergy status to other antibiotic agents; Z88.5 Allergy status to narcotic agent; Z79.899 Other long term (current) drug therapy; Z79.52 Long term (current) use of systemic steroids; Z53.9 Procedure and treatment not carried out, unspecified reason
CPT/HCPCS: 74177; 80048; 80076; 81001; 82550; 82553; 83605; 83690; 83880; 84484; 85025; 87040; 87486; 87581; 87633; 87798; 93005; 93041; 94760; 96365; 96366; 96375; 99285; J2543; J2919; Q9963; Q9967

== ENCOUNTER 2024-01-18 10:23 | Emergency (ER) | payer MEDICARE ==
[~2024-01-18] VITALS: Ht 182.9 cm; Wt 103.3 kg
[2024-01-18 10:23] VITALS: BP 142/77; TEMP 97.6; O2SAT 98
[2024-01-18] MEDS: KETOROLAC 60MG 2ML VIAL IM ONE (12:46)
== END 2024-01-18 13:42 | disposition home or self-care (01) ==
LOC: M ED 10:23
DX: S30.0XXA Contusion of lower back and pelvis, initial encounter (principal); W19.XXXA Unspecified fall, initial encounter; K21.9 Gastro-esophageal reflux disease without esophagitis; J44.9 Chronic obstructive pulmonary disease, unspecified; K50.90 Crohn's disease, unspecified, without complications; J45.909 Unspecified asthma, uncomplicated; Z88.8 Allergy status to other drugs, medicaments and biological substances; Y92.9 Unspecified place or not applicable; Y93.89 Activity, other specified; Y99.9 Unspecified external cause status; Z79.1 Long term (current) use of non-steroidal anti-inflammatories (NSAID)
CPT/HCPCS: 72131; 96372; 99282; J1885

== ENCOUNTER 2024-03-24 17:28 | Emergency (ER) | payer MEDICARE ==
[~2024-03-24] VITALS: Ht 185.4 cm; Wt 108.6 kg
[2024-03-24] MEDS ORDERED: KETO10TAB (17:38)
[2024-03-24] MEDS ORDERED: OMEP40CA5 (17:38)
[2024-03-24] MEDS: methocarbamoL 500 MG TAB PO ONE (21:24)
[2024-03-24] MEDS: predniSONE 20 MG TAB PO ONE (21:24)
[2024-03-24] MEDS: KETOROLAC 60MG 2ML VIAL IM ONE (21:24)
[2024-03-24] MEDS ORDERED: METH-1164 PO (22:51)
[2024-03-24] MEDS ORDERED: PRED20TA PO (22:51)
[2024-03-24 22:58] VITALS: BP 136/87; TEMP 97.9; O2SAT 99
== END 2024-03-24 22:59 | disposition home or self-care (01) ==
LOC: M ED 17:28
DX: M54.42 Lumbago with sciatica, left side (principal); K21.9 Gastro-esophageal reflux disease without esophagitis; K46.9 Unspecified abdominal hernia without obstruction or gangrene; Z88.8 Allergy status to other drugs, medicaments and biological substances; Z79.83 Long term (current) use of bisphosphonates; Z79.52 Long term (current) use of systemic steroids; Z79.899 Other long term (current) drug therapy
CPT/HCPCS: 72110; 96372; 99284; J1885; J7512